=== PATIENT | female | born 1995 | race Caucasian/White ===

== ENCOUNTER 2016-04-27 16:32 | Emergency (ER) | payer OTHER ==
[~2016-04-27] VITALS: Wt 63.5 kg
[2016-04-27] MEDS ORDERED: IBUP-1542 PO (18:43)
--- NOTE | 2016-04-27 18:46 | ERD ---
ER Documentation Chief Complaint Date/Time DATE: 04/27/16 TIME: 18:44 Chief Complaint BILATERAL FOOT NUMBNESS FOR THE PAST FEW DAYS. NO TRAUMA NO BACK PAIN HPI This 20-year-old female complains of sensation of numbness intermittent pain in her bilateral feet for the last 3 days. The pain is described as originating possibly approximately the area between the second and third metatarsals on the bilateral feet and radiates to the fourth and fifth toes. She has been running a lot lately. She denies any inciting event specifically. The right is equal to the left. No fevers, vomiting, shortness of breath or chest pain she denies any other symptoms other than her bilateral feet. ROS All systems reviewed and are negative except as per history of present illness. Medications Home Meds Active Scripts Ibuprofen* (Motrin*) 600 Mg Tab, 600 MG PO Q6, #20 TAB Prov:IGOR ROSE MD 04/27/16 Allergies Allergies: Coded Allergies: No Known Allergy (Unverified , 01/20/14) PMhx/Soc Medical and Surgical Hx: pt denies Medical Hx, pt denies Surgical Hx History of Surgery: No Anesthesia Reaction: No Hx Neurological Disorder: No Hx Respiratory Disorders: No Hx Cardiac Disorders: No Hx Psychiatric Problems: No Hx Miscellaneous Medical Probl: No Hx Alcohol Use: No Hx Substance Use: No Hx Tobacco Use: No Smoking Status: Never smoker Physical Exam Vitals Vital Signs Date Time Temp Pulse Resp B/P Pulse Ox O2 Delivery O2 Flow Rate FiO2 04/27/16 16:37 98.2 96 20 118/75 100 Physical Exam Const: [] Alert, [id number]. Head: Atraumatic Eyes: Normal Conjunctiva ENT: Normal External Ears, Nose and Mouth. Neck: Full range of motion..~ No meningismus. Resp: Clear to auscultation bilaterally Cardio: Regular rate and rhythm, no murmurs Abd: Soft, non tender, non distended. Normal bowel sounds Skin: No petechiae or rashes Back: No midline or flank tenderness Ext: No cyanosis, or edema. 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 The bilateral extremities are no mass intact and pulses are 2+ in both dorsalis pedis and anterior tibial. Neur: Awake and alert Psych: Normal Mood and Affect Procedures/MDM This patient has sensation of paresthesias slight reproducible pain to bilateral feet for last 3 days. Appears to be musculoskeletal or possibly nerve irritation possibly due to running or poor fitting shoes. Accu-Chek was 88. There is no signs or symptoms of any serious illness currently and I do not think any further evaluation or radiologic studies will be fruitful. She will be discharged home with obstruction ibuprofen and further observation at home. Patient advised to follow-up with primary doctor possibly deicer kit assembler for further evaluation. She should return for fevers, vomiting, shortness breath or chest pain or new worsening symptoms as directed and aftercare instructions. Departure Diagnosis: Primary Impression: Numbness Condition: Stable Patient Instructions: Paraesthesias Additional Instructions: Likely nerve irritation possibly from shoes or activity. Recommend further observation at home, and observe for any things that make symptoms worse. See deicer kit assembler for further evaluation with primary care doctor for physical. Return for fevers, redness, cough, shortness breath or chest pain or new symptoms. IGOR ROSE MD Apr 27, 2016 18:46
== END 2016-04-27 18:51 | disposition home or self-care (01) ==
LOC: FTE 16:32
DX: R20.0 Anesthesia of skin (principal)
CPT/HCPCS: 82962; 99283